=== PATIENT | born 1985 | race Caucasian/White ===

== ENCOUNTER 2023-05-04 15:08 | Outpatient (CLI) | payer OTHER | END 2023-05-04 15:09 | disposition home or self-care (01) | LOC: SCSRAD 15:08 | PROVIDERS: ATTEND Nurse Practitioner Family | DX: S89.91XA Unspecified injury of right lower leg, initial encounter (principal) ==

== ENCOUNTER 2023-05-26 08:30 | Outpatient (CLI) | payer OTHER | END 2023-05-26 08:31 | disposition home or self-care (01) | LOC: BICMRI 08:30 | PROVIDERS: ATTEND Nurse Practitioner Family | DX: S89.91XD Unspecified injury of right lower leg, subsequent encounter (principal); S83.511A Sprain of anterior cruciate ligament of right knee, initial encounter; S80.01XA Contusion of right knee, initial encounter; M25.461 Effusion, right knee; M22.2X1 Patellofemoral disorders, right knee ==